=== PATIENT | female | born 1940 | race Caucasian/White ===

== ENCOUNTER 2018-03-28 11:05 | Emergency (ER) | payer MEDICARE ==
--- OUTSIDE RECORDS SUMMARY | 2018-03-28 11:14 | XMS REPORT ---
:1940 External Reference #:[id number] Author Organization [facility] Address [address], [address] [place] [address] Phone [phone] Care Team Providers Name Role Phone Arcadio King MD Care Team Information Charge Accounts Audit Clerk Unavailable Arcadio King MD Primary Care Physician Unavailable Payers Type Date Identification Numbers Payment Provider Subscriber Commercial Policy Number: [id number] [employer] Yaa Penn PayID: [id number] [address] [address] [place] [address] Problems Date Description Provider Status Onset: 01/28/2018 H/O: urinary stone Cj Nunes M.D. Active Onset: 11/06/2017 Peripheral vascular disease Kimberly Spangler, Active MSN, EXTENSION AGENT Onset: 11/06/2017 Mitral valve disorder Kimberly Spangler, Active MSN, EXTENSION AGENT Onset: 07/23/2017 Aortic valve disorder Jean Simon Active M.D., FACC Onset: 07/23/2017 Cardiomyopathy, unspecified Jean Simon Active M.D., FACC Onset: 07/23/2017 Electrocardiogram abnormal Jean Simon Active M.D., FACC Onset: 07/23/2017 Dyspnea Jean Simon Active M.D., FACC Onset: 12/29/2013 Full thickness rotator cuff tear Chencho Delgado MD, Active FACS Onset: 12/15/2013 Brachial neuritis Chencho Delgado MD, Active FACS Onset: 12/15/2013 Displacement of cervical Chencho Delgado MD, Active 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 Onset: 12/15/2013 Localized, primary osteoarthritis Chencho Delgado MD, Active of the shoulder region FACS Onset: 12/15/2013 Disorder of shoulder Chencho Delgado MD, Active FACS Family History Date Family Member(s) Problem(s) Comments General Cancer General Stroke General Diabetes Father due to Heart Disease () Mother Lung Cancer Social History Type Date Description Comments Marital Status Lives With Diet Patient follows no dietary restrictions Occupation Retired Cigarette Use Never Smoked Cigarettes ETOH Use Rarely consumes alcohol Smoking Patient denies history of smoking Recreational Drug Use Denies Drug Use Daily Caffeine Consumes on average 2 cups of regular coffee per day Allergies, Adverse Reactions, Alerts Date Description Reaction Status Severity Comments 12/15/2013 NKDA active Medications Medication Date Status Form Strength Qnty SIG Indications Ordering Provider Carvedilol 11/06 Active Tablets 3.125mg 180ta take one I42.9 Spangler, bs tablet Kimberly by mouth [place] once a , MSN, day in EXTENSION AGENT the evening to start with and then if tolerate d, twice a day Nexium Active Capsules DR 40mg 1 po Unknown /0000 daily Hydroxychloroquine Active Tablets 200mg bid Unknown Sulfate / Meclizine HCL Active Tablets 25mg 1 po Unknown / daily as needed Amitriptyline HCL Active Tablets 50mg 1 po Unknown /0000 daily Caltrate 600+D Active Tablets 600-400mg 1 po Unknown /0000 -Unit twice daily Centrum Silver Active Tablets 1 po Unknown /0000 daily Vitamin D-3 Active Tablets 400Unit 1 po Unknown /0000 twice daily Tylenol Active Misc Unknown / Levothyroxine Active Tablets 25mcg Once a Unknown Sodium day Clopidogrel 08/17 Hx Tablets 75mg 30tab 1 by R06.Jhonatan Spangler Bisulf s mouth Kimberly every day , MSN, EXTENSION AGENT Ranexa 08/17 Hx Tablets ER 500mg 60tab 1 by R06.Jhonatan Spangler, 12HR s mouth Kimberly twice a Paul toro MSN, EXTENSION AGENT Carvedilol 08/17 Hx Tablets 3.125mg 60tab by mouth I42.9 Spangler, s twice a Kimberly day EWA Miller, EXTENSION AGENT Sulindac 12/15 Hx Tablets 200mg 40tab 1 po bid [place], s Chencho Knight MD, FACS Multi-Day Hx Tablets Unknown / Folic Acid Hx Tablets 800mcg Unknown / Excedrin Extra Hx Tablets 250-250-6 prn Unknown Strength /0000 5mg Allergy Hx Tablets 25mg Unknown / Anti-Diarrheal Hx Capsules 2mg prn Unknown / Tums Hx Chewtabs 500mg prn Unknown /0000 - 01/28 Gaviscon Hx Suspension 95-358mg/ Unknown /0000 15ML Vital Signs Date Vital Result Comment 03/11/2018 BP Systolic 145 mmHg BP Diastolic 72 mmHg Body Temperature 97.5 F Heart Rate 63 /min Respiratory Rate 16 /min Height 64.5 inches 5'4.50" Weight 138.12 lb BMI (Body Mass Index) 23.3 kg/m2 BSA (Body Surface Area) 1.68 m2 Boaz body weight in kilograms 56 O2 % BldC Oximetry 93 % Pain Level 0 01/28/2018 BP Systolic 134 mmHg BP Diastolic 61 mmHg Body Temperature 98.1 F Heart Rate 76 /min Respiratory Rate 16 /min Height 64.5 inches 5'4.50" Weight 129.50 lb BMI (Body Mass Index) 21.9 kg/m2 BSA (Body Surface Area) 1.64 m2 Boaz body weight in kilograms 56 O2 % BldC Oximetry 97 % Pain Level 3 Left low back pain 11/06/2017 BP Systolic Sitting Left Arm 114 mmHg BP Diastolic Sitting Left Arm 60 mmHg Heart Rate 84 /min Respiratory Rate 18 /min Height 64.5 inches 5'4.50" Weight 134.00 lb BMI (Body Mass Index) 22.6 kg/m2 BSA (Body Surface Area) 1.66 m2 Boaz body weight in kilograms 56 08/17/2017 BP Systolic Sitting Left Arm 136 mmHg BP Diastolic Sitting Left Arm 64 mmHg Heart Rate 75 /min Respiratory Rate 16 /min Height 64.5 inches 5'4.50" Weight 133.00 lb BMI (Body Mass Index) 22.5 kg/m2 BSA (Body Surface Area) 1.65 m2 Boaz body weight in kilograms 56 07/23/2017 BP Systolic Sitting Left Arm 110 mmHg BP Diastolic Sitting Left Arm 60 mmHg Heart Rate 90 /min Respiratory Rate 16 /min Height 64.5 inches 5'4.50" Weight 133.00 lb BMI (Body Mass Index) 22.5 kg/m2 BSA (Body Surface Area) 1.65 m2 Boaz body weight in kilograms 56 12/15/2013 BP Systolic Sitting Left Arm 124 mmHg BP Diastolic Sitting Left Arm 60 mmHg Height 64.5 inches 5'4.50" Weight 138.00 lb BMI (Body Mass Index) 23.3 kg/m2 BSA (Body Surface Area) 1.68 m2 Results Test Date Test Result H/L Range Note Urine Dipstick 01/28/2018 Ua Color Yellow Yellow Ua Clarity CLear Clear Ua Leuko Negative Negative Ua Nitrite Negative Negative Ua Urobilinogen 1 mg/dL 0.2 - 1.0 E.U./dL Ua Protein 15 mg/dL High Negative Ua PH 5.0 Low 6.5-7.5 Ua Blood Negative Negative Ua Specific [place] 1.030 1.010-1.030 Ua Ketones Negative Negative Ua Bilirubin Negative Negative Ua Glucose Negative Negative Comprehensive Metabolic Panel 08/17/2017 Glucose 97 mg/dL 74-106 1 BUN 12 mg/dL 7-18 1 Creatinine 0.8 mg/dL 0.6-1.3 1 Glom Filtration Rate, Estimate >60 mL/min >60 1 If >60 mL/min >60 1, 2 BUN/Creat 15.0 ratio 1 Sodium 139 mmol/L 136-145 1 Potassium 4.1 mmol/L 3.5-5.1 1 Chloride 108 mmol/L High 98-107 1 Carbon Dioxide 26 mmol/L 21-32 1 Anion Gap 5 mEq/L Low 8-16 1 Calcium 9.3 mg/dL 8.5-10.1 1 Total Protein 7.0 g/dL 6.4-8.2 1 Albumin 3.7 g/dL 3.4-5.0 1 Globulin 3.3 g/dL 1.9-4.3 1 Alb/Glob 1.1 ratio 1 Bilirubin,Total 0.2 mg/dL 0.2-1.0 1 Sgot/Ast 19 U/L 15-37 1 SGPT/Alt 16 U/L 12-78 1 Alkaline Phosphatase 76 U/L 45-117 1 CBS W/Automated Diff 08/17/2017 White Blood Count 5.4 K/uL 3.1-10.7 1 Red Blood Count 4.06 M/uL 3.90-5.40 1 Hemoglobin 12.7 gm/dL 11.6-15.8 1 Hematocrit 38.0 % 36.0-46.1 1 Mean Cell Volume 93.6 fl 80.9-99.0 1 Mean Corpuscular HGB 31.3 pg 25.9-32.7 1 Mean Corpuscular HGB Conc 33.4 g/dL 30.8-34.3 1 Platelet Count 263 K/uL 155-360 1 Red Cell Distri Width SD 44.9 fl 3-47 1 Red Cell Distri Width %CV 13.5 % 11.7-14.4 1 Mean Platelet Volume 10.9 fL 8.9-12.4 1 Neut% 67.0 % 40.4-72.8 1 Lymph % 19.4 % Low 20.0-42.0 1 [place] % 9.0 % 4.3-13.2 1 Eo% 3.9 % 0.0-6.6 1 Bas% 0.7 % 0.0-1.1 1 Neut# 3.58 K/uL 1.8-7.0 1 Lymph # 1.04 K/uL 1.0-4.0 1 [place] # 0.48 K/uL 0.3-0.9 1 Eos # 0.21 K/uL 0.0-0.5 1 Baso # 0.04 K/uL 0.0-0.1 1 Laboratory test finding 06/03/2017 Alt 13 U/L 3-42 3 Ast 24 U/L 8-42 3, 4 Chol/ HDL Ratio 3.5 ratio Low 3.7-5.6 3, 5 Cholesterol 177 mg/dL 50-199 3 HDL 51 mg/dL 35-85 3 LDL (Calc) 108 mg/dL High 20-99 3 Magnesium 1.9 mg/dL 1.5-2.7 3 TSH 3.49 uIU/mL 0.35-4.94 3 Triglycerides 91 mg/dL 30-200 3 VLDL 18 mg/dL 2-29 3 Vit D25oh 54 ng/mL 31-100 3 Laboratory test finding 11/24/2016 Urine Culture Microbiology res <See Note > 6 1 R06.02 2 Note: Persistent reduction for 3 months or more in an eGFR <60 mL/min/1.73 m2 defines CKD. Patients with eGFR values >/=60 mL/min/1.73 m2 may also have CKD if evidence of persistent proteinuria is present. The original MDRD equation for estimated GFR is not valid for patients less than 18 years of age. Additional information may be found at [email or web address].org. 3 05/31 preOV 4 Per NCEP ATP III Guidelines: Normal Population <130 Patients with medical conditions: CHD/DM Optimal: <100 Borderline high: 130-159 High: 160-189 Very high: >189 5 Per NCEP ATP III Guidelines: Results lower than 40 mg/dL are suggestive of increased risk for coronary artery disease. Results > or=to 60 mg/dL are considered a negative risk factor. 6 Microbiology results SOURCE Clean Catch Midstream COLONY COUNT >100,000 CFU/ML PRELIMINARY RESULT Gram Negative Romain. ID & Sensitivity to Follow. FINAL RESULT Escherichia coli (Isolate 1) Sensitivity Analysis Isolate 1 --------- AMIKACIN <=16 S AMPICILLIN <=8 S AMPICILLIN/SULBACTAM <=8/4 S AZTREONAM <=4 S CEFAZOLIN <=2 S CEFEPIME <=8 S CEFTAZIDIME <=1 S CEFTRIAXONE <=1 S CIPROFLOXACIN <=1 S ERTAPENEM <=0.5 S GENTAMYCIN <=2 S IMIPENEM <=1 S LEVOFLOXACIN <=2 S NITROFURANTOIN <=32 S PIPERACILLIN/TAZOBACTAM <=16 S TETRACYCLINE <=4 S TOBRAMYCIN <=4 S TRIMETHOPRIM/SULFAMETHOXAZ <=2/38 S S=Sensitive;I=Indeterminate;R=Resistant Procedures Date CPT Code Description Status 08/20/2017 97417 Event Monitor Inter/Review Only Completed 07/31/2017 17963 Stress Test Interpre And Report Only Completed 07/31/2017 90700 Stress Test Physician Super Only Completed 07/31/2017 74859 Myocardial Imaging Tomographic Multiple Study AT Rest Completed Or Stress 07/23/2017 42252 EKG-Tracing And Report Completed 06/02/2014 33037 Stress Test Interpre And Report Only Completed 06/02/2014 83357 Stress Test Physician Super Only Completed 06/02/2014 96295 Stress Test Physician Super Only Completed 06/02/2014 83149 Myocardial Imaging Tomographic Multiple Study AT Rest Completed Or Stress 12/15/2013 30307 Radiology, Shoulder: Two Views (Sso) Completed 12/15/2013 27069 xray spine cervical min 4 views Completed 04/29/2010 32941 Stress Test Interpre And Report Only Completed 04/29/2010 41427 Stress Test Physician Super Only Completed Encounters Type Date Location Provider CPT E/M Dx Office Visit 03/11/2018 2:45p Urology Cj Nunes M.D. 81840 Z87.442 Office Visit 01/28/2018 1:30p Urology Cj Nunes M.D. 21759 Z87.442 Office Visit 11/06/2017 11:20a Cardiology Office Kimberly Spangler 15254 I42.9 Paul, MSN, EXTENSION AGENT I34.0 I35.1 I87.2 Office Visit 08/17/2017 3:00p Cardiology Office Spangler Kimberlycaleb Miller, 28571 R06.02 MSN, EXTENSION AGENT I42.9 R55 I34.0 I35.1 Office Visit 07/23/2017 11:40a Cardiology Office Jean Simon, 86818 R06.02 Annamaria, [facility] R94.31 I42.9 I35.1 Office Visit 12/29/2013 3:00p [place], [address] 726.2 FACS 715.11 722.0 723.4 727.61 Office Visit 12/15/2013 1:30p [place], [address] 726.2 FACS 715.11 722.0 723.4 719.41 Plan of Care 03/11/2018 - Cj Nunes M.D.Z87.442 Personal history of urinary calculiComments:No evidence of recurrent stones on her CT scan. Patient to follow-up with me as needed.
--- OUTSIDE RECORDS SUMMARY | 2018-03-28 11:14 | XMS REPORT ---
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 Payers Type Date Identification Numbers Payment Provider Subscriber Commercial Effective: Policy Number: [employer] Yaa Penn 2017 [id number] Solutions Expires: 2018 Group Number: [id number] [address] [address] Group Name: [facility] [address] PayID: [id number] Workers Compensation Onset: 2014 Policy Number: [employer] [id number] Chelsi Penn Group Number: [id number] Group Name: fax [phone] [place] [address] PayID: [facility] Workers Compensation Onset: 2012 Policy Number: [place] Yaa Penn [id number] [address] [place] [address] Problems Date Description Provider Status Onset: 11/30/2013 Peptic reflux disease Arcadio King MD Active Onset: 06/01/2013 Disorder of magnesium metabolism Arcadio King MD Active Onset: 11/12/2011 Kidney stone Arcadio King MD Active Onset: 10/21/2006 Pure hypercholesterolemia Arcadio King MD Active Onset: 04/22/2006 Raynaud's disease Arcadio King MD Active Onset: 10/22/2005 Gastroesophageal reflux disease Arcadio King MD Active Onset: 10/22/2005 Varicose veins of lower extremity Arcadio King MD Active with inflammation Onset: 04/22/2005 Menopausal and postmenopausal Arcadio King MD Active disorders Onset: 04/22/2005 Systemic lupus erythematosus Arcadio King MD Active Onset: 11/23/2015 Hypothyroidism Arcadio King MD Active Onset: 12/02/2016 Fibromyalgia Arcadio King MD Active Onset: 05/07/2017 Osteopenia Arcadio King MD Active Onset: 05/07/2017 Lipodermatosclerosis Arcadio King MD Active Onset: 06/10/2017 Chronic obstructive lung disease Arcadio King MD Active Onset: 11/03/2017 Cardiomyopathy Arcadio King MD Active Onset: 12/09/2017 Vertebrobasilar artery syndrome Arcadio King MD Active Onset: 05/06/2011 Eruption Arcadio King MD Inactive Inactive: 05/07/2017 Onset: 12/22/2006 Osteochondropathy Arcadio King MD Inactive Inactive: 05/07/2017 Onset: 04/22/2005 Malaise and fatigue Arcadio King MD Inactive Inactive: 05/07/2017 Family History Date Family Member(s) Problem(s) Comments Father due to OK () - 70's Father CVA Mother due to Cancer, Breast () - 77 Mother CVA Mother due to DM2 () First Sister Multiple Sclerosis Social History Type Date Description Comments Marital Status Lives With Spouse 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 active 10/02/2014 Sulfa Drugs active 10/02/2014 Darvon active 10/02/2014 Celexa active 10/02/2014 Ultram active 10/02/2014 NKDA inactive Medications Medication Date Status Form Strength Qnty SIG Indications Ordering Provider Nexium 24HR 06/27/[address] 20mg OTC 1 pill by K21.0 Digiovanwilliam, 18 mouth MD Arcadio twice a day K21.9 Hydrocortisone 11/03/2017 Active Ointment 2.5% 60gm apply I83.10 Christine, sparingly MD Arcadio three times a day to rash on legs as needed Aspirin Ec Low 07/09/[address] 81mg 90tabs 1 by mouth I42.9 Digiovanna, Dose every day MD Arcadio Meclizine HCL 06/07/2016 Active Tablets 12.5mg 100tab Take 1 Or H81.399 Digiovanna, s 2 Tablets MD Arcadio By Mouth 3 Times Daily as Needed For Vertigo, Max Daily Dose Of 6 Tablets Levothyroxine 11/23/2015 Active Tablets 25mcg 135tab Take 1 And E03.9 Digiovanna, Sodium s /2 MD Arcadio Tablets By Mouth Daily Amitriptyline 09/21/2015 Active Tablets 50mg 90tabs 1/2 or 1 M79.7 Digiovanna, HCL by mouth MD Arcadio every night at bedtime Biotin 11/02/2014 Active Capsules 5000mc 2 by mouth Giron, g every day DO Yoav Magnesium Oxide 06/01/2013 Active Tablets 400(24 1 po qd E83.42 Digiovanna, 1.3Mg) Arcadio Zamora MD mg E83.40 [facility] Vitamin D3 04/25/2009 Active Capsules 1000Unit 2 po qd M85.89 Arcadio King MD M93.90 Calcium Active Tablets 1500mg 1 po bid M85.89 Christine, Carbonate Arcadio Zamora MD M93.90 Carvedilol Active Tablets 3.125mg 1 pill by I42.9 Unknown mouth twice a day Hydroxychloroquine Active Tablets 200mg 180 Take 1 M32.10 Digiovanna Sulfate tab Tablet By , batsheva Ervin MD Twice A Day M32.9 Mometasone 07/30/2017 - 07/30/2017 Hx Ointment 0.1% R21 Arcadio King MD I83.10 Mometasone 07/30/2017 - Hx Ointment 0.1% 30gm apply R21 Digiovanna, Furoate 11/03/2017 sparingly MD Arcadio twice a day to rash on legs I83.10 Amoxicillin 06/22/2017 - Hx Tablets 875mg 20tabs 1 by J01.00 Digadriana , 07/02/2017 mouth MD Arcadio twice a day for 10 days Esomeprazole 12/04/2016 - Hx Capsules DR 40mg 180caps take one K21.0 Digiovanna, Magnesium 12/09/2017 capsule MD Arcadio by mouth twice a day K21.9 Nitrofurantoin 11/24/2016 - Hx Capsules 100mg 14caps 1 by mouth R30.0 Digiovanna, Macrocrystal 12/01/2016 twice a day PILI Mendiola for 7 days Hydrocortisone 06/02/2016 - Hx Cream 2.5% 15gm apply R21 Digiovanna, 11/12/2016 sparingly MD Arcadio 2- 3 times a day to rash on legs Reclast 06/02/2016 - Hx Solution 5mg/100 100ml infuse iv M85.89 Digiovanna, 07/02/2016 ML over 15 MD Arcadio minutes Ciprofloxacin 02/23/2016 - Hx Tablets 250mg 6tabs 1 by mouth N30.00 Cha, HCL 02/23/2016 twice a day MD Abena Cephalexin 02/23/2016 - Hx Tablets 250mg 14tabs 1 by mouth N30.00 Cha, 06/02/2016 twice a MD Abena day, cancel the cipro, pt has long QT Nifedical XL 08/06/2015 - Hx Tablets ER 30mg 90tabs Take 1 I73.00 Christine, 06/10/2017 24HR tablet by MD Arcadio mouth every morning (during colder weather) M32.9 Azithromycin 06/06/2015 - Hx Tablets 250mg 6tabs 2 pills by J04.10 Digiovanna, 06/16/2015 mouth day 1, MD Arcadio then 1 pill once daily for 4 more days (take w/ food) Zostavax 05/23/2015 - Hx Solution [id number] 1units 1 dose Digiovanna, 06/02/2016 Rec nt/0.6 intramuscular MD Arcadio 5ML x 1 Amitriptyline 05/23/2015 - Hx Tablets 50mg 90tabs 1 by mouth 729.1 Halleran, HCL 05/23/2015 every night at MD John bedtime Amitriptyline 05/23/2015 - Hx Tablets 50mg 90tabs 1 by mouth 729.1 Halleran, HCL 05/23/2015 every night at MD John bedtime Amitriptyline 05/23/2015 - Hx Tablets 25mg 90tabs Take 1 tablet M79.7 Digiovanna, HCL 09/21/2015 by mouth at MD Arcadio bedtime Lorazepam 12/08/2014 - Hx Tablets 0.5mg 20tabs 1 or 2 tabs by 386.10 Digiovanna, 06/07/2016 mouth every 4 MD Arcadio hours as needed for severe vertigo Reclast 11/22/2014 - Hx Solution 5mg/10 infusse 100 733.01 Digiovanna, 12/12/2014 0ML milliliters (5 MD Arcadio mg) iv over 15 minute; dx oteoporosis(73 3.01) Ciprofloxacin 11/21/2014 - Hx Tablets 250mg 10tabs 1 po bid x 5 595.0 Digiovanna, HCL 11/26/2014 days MD Arcadio Esomeprazole 11/21/2014 - Hx Capsules 20mg 180cap 2 by mouth K21.0 Digiovanna, Magnesium 12/04/2016 DR herman twice a day MD Arcadio OTC K21.9 Doxycycline 11/02/2014 - Hx Capsules 100mg 2caps 2 po x 1 911.4 Boo Gironclate 11/03/2014 DO Yoav Esomeprazole 06/13/2014 - Hx Capsules 40mg 180caps take 1 Digiovanna Magnesium 10/09/2014 Arcadio george twice a day Noah RAO before meals Naproxen Sodium 04/23/2014 - Hx Capsules 220mg 2 by mouth Digiovanna 10/02/2014 twice a day Arcadio as needed Noah RAO Nifedipine ER 05/27/2012 - Hx Tablets ER 30mg 90tabs 1 by mouth I73.00 Digiovanna 08/06/2015 24HR every , patric Ervin MD (during colder weather) Amitriptyline 06/05/2010 - Hx Tablets 50mg 90tabs 1 by mouth 729.1 Digiovanna HCL 05/23/2015 every night , Arcadio at bedtime Noah RAO Folic Acid - Hx Tablets 1mg 1 po qd Digiovanna 11/21/2014 , Arcadio Zamora MD Triamcinolone - Hx Ointment 0.1% apply R21 Foresman, Acetonide 07/30/2017 sparingly Paulina CANALES twice a day to rash on legs as needed I83.10 Carvedilol - Hx Tablets 3.125mg 1 by I42.9 Johnenko, 11/03/2017 mouth MD Jean twice a day Clopidogrel - Hx Tablets 75mg 1 by I42.9 Aurora, Bisulfate 11/03/2017 mouth MD Jean every day Ranexa - Hx Tablets ER 500mg 1 by I42.9 Aurora, 11/03/2017 12HR mouth MD Jean twice a day Immunizations CPT Code Status Date Vaccine Reaction Lot # [id number] Given 03/23/2018 Fluzone Highdose Age 65 And Over Preservative & Antibiotic Free 68192 Given 03/28/2017 Fluzone Highdose Age 65 And Over Preservative & Antibiotic Free 85777 Given 04/30/2016 Fluzone Highdose Age 65 And Over [facility] Preservative & Antibiotic Free 05000 Given 05/23/2015 Fluzone Highdose Age [address] [facility] Preservative & Antibiotic Free 76742 Given 11/21/2014 Prevnar 13 Pneumococal Conjugate [id number] Vaccine 43435 Given 03/31/2014 Fluzone Highdose Age 65 And Over [facility] Preservative & Antibiotic Free 91624 Given 03/31/2013 Afluria Or Fluvirin Flu Vac Intramuscular 68593 Given 04/01/2012 Afluria Or Fluvirin Flu Vac Intramuscular 61838 Given 07/16/2011 Tdap (Adacel) Ages 7 And Above Only 30609 Given 02/21/2011 Afluria Or Fluvirin Flu Vac Intramuscular 18027 Given 02/27/2010 Afluria Or Fluvirin Flu Vac DONE AT [facility] Intramuscular 72966 Given 04/10/2008 Afluria Or Fluvirin Flu Vac Intramuscular 35020 Given 04/23/2007 Afluria Or Fluvirin Flu Vac Intramuscular 09665 Given 04/22/2006 Afluria Or Fluvirin Flu Vac Intramuscular 06942 Given 04/22/2005 Afluria Or Fluvirin Flu Vac Intramuscular 44095 Given 10/16/2003 Immunization Td 7 Yrs Or Older 71355 Given 04/18/2003 Pneumococcal 23 Immunization Adult Or Immunosuppressed Patient 71436 Given 04/18/2003 Afluria Or Fluvirin Flu Vac Intramuscular Vital Signs Date Vital Result Comment 03/27/2018 Weight 129.12 lb Heart Rate 80 /min BP Systolic 134 mmHg BP Diastolic 64 mmHg Respiratory Rate 18 /min Height 65 inches 5'5" O2 % BldC Oximetry 97 % ra BMI (Body Mass Index) 21.5 kg/m2 12/09/2017 Weight 132.00 lb Heart Rate 78 /min BP Systolic 120 mmHg BP Diastolic 70 mmHg Respiratory Rate 18 /min Height 65 inches 5'5" BMI (Body Mass Index) 22.0 kg/m2 11/03/2017 Weight 132.00 lb Heart Rate 72 /min BP Systolic 120 mmHg BP Diastolic 62 mmHg Respiratory Rate 18 /min Height 65 inches 5'5" BMI (Body Mass Index) 22.0 kg/m2 07/09/2017 Weight 133.00 lb Heart Rate 82 /min BP Systolic 116 mmHg BP Diastolic 82 mmHg Respiratory Rate 18 /min Height 65 inches 5'5" BMI (Body Mass Index) 22.1 kg/m2 06/22/2017 Body Temperature 100.7 F Weight 133.00 lb Heart Rate 100 /min BP Systolic 120 mmHg BP Diastolic 66 mmHg Respiratory Rate 18 /min Height 65 inches 5'5" O2 % BldC Oximetry 93 % Ra BMI (Body Mass Index) 22.1 kg/m2 06/10/2017 Weight 135.00 lb Heart Rate 72 /min BP Systolic 120 mmHg BP Diastolic 78 mmHg Height 65 inches 5'5" BMI (Body Mass Index) 22.5 kg/m2 12/02/2016 Weight 141.00 lb Heart Rate 84 /min BP Systolic 102 mmHg BP Diastolic 60 mmHg BP Systolic Standing 120 mmHg 86 HR BP Diastolic Standing 68 mmHg 86 HR Respiratory Rate 18 /min Height 64.75 inches 5'4.75" O2 % BldC Oximetry 99 % Ra at rest BMI (Body Mass Index) 23.6 kg/m2 11/24/2016 Body Temperature 96.9 F Weight 140.00 lb Heart Rate 84 /min BP Systolic 118 mmHg BP Diastolic 58 mmHg Respiratory Rate 17 /min Height 65 inches 5'5" BMI (Body Mass Index) 23.3 kg/m2 06/02/2016 Weight 129.00 lb Heart Rate 74 /min BP Systolic 120 mmHg BP Diastolic 78 mmHg Respiratory Rate 18 /min Height 65 inches 5'5" BMI (Body Mass Index) 21.5 kg/m2 02/23/2016 Body Temperature 98.5 F Weight 137.00 lb Heart Rate 70 /min BP Systolic 132 mmHg BP Diastolic 70 mmHg Respiratory Rate 17 /min Height 65 inches 5'5" BMI (Body Mass Index) 22.8 kg/m2 11/23/2015 Weight 144.00 lb Heart Rate 74 /min BP Systolic 120 mmHg BP Diastolic 70 mmHg Respiratory Rate 18 /min Height 65 inches 5'5" BMI (Body Mass Index) 24.0 kg/m2 06/06/2015 Body Temperature 97.7 F Weight 140.00 lb Heart Rate 74 /min BP Systolic 134 mmHg L/Reg BP Diastolic 72 mmHg L/Reg Respiratory Rate 19 /min Height 65 inches 5'5" BMI (Body Mass Index) 23.3 kg/m2 05/23/2015 Weight 141.00 lb Heart Rate 76 /min BP Systolic 122 mmHg BP Diastolic 58 mmHg Respiratory Rate 18 /min Height 65 inches 5'5" BMI (Body Mass Index) 23.5 kg/m2 02/21/2015 Weight 136.00 lb Heart Rate 76 /min BP Systolic 112 mmHg BP Diastolic 70 mmHg Respiratory Rate 18 /min Height 65 inches 5'5" BMI (Body Mass Index) 22.6 kg/m2 11/21/2014 Weight 140.00 lb Heart Rate 92 /min BP Systolic 148 mmHg BP Diastolic 62 mmHg Respiratory Rate 18 /min Height 65 inches 5'5" BMI (Body Mass Index) 23.3 kg/m2 11/02/2014 Body Temperature 98.4 F Weight 146.00 lb Heart Rate 68 /min BP Systolic 134 mmHg BP Diastolic 68 mmHg Respiratory Rate 18 /min Height 65 inches 5'5" BMI (Body Mass Index) 24.3 kg/m2 10/09/2014 Weight 151.00 lb BP Systolic 130 mmHg BP Diastolic 72 mmHg Respiratory Rate 18 /min Height 65 inches 5'5" O2 % BldC Oximetry 97 % BMI (Body Mass Index) 25.1 kg/m2 10/02/2014 Body Temperature 99.1 F Weight 148.00 lb Heart Rate 72 /min BP Systolic 134 mmHg BP Diastolic 76 mmHg Respiratory Rate 18 /min Height 65 inches 5'5" BMI (Body Mass Index) 24.6 kg/m2 05/23/2014 Weight 141.00 lb Up 3# Heart Rate 78 /min BP Systolic 138 mmHg L/Reg BP Diastolic 78 mmHg L/Reg Respiratory Rate 22 /min Height 65 inches 5'5" O2 % BldC Oximetry 94 % Ra At Rest 11/30/2013 Weight 138.44 lb Heart Rate 72 /min BP Systolic 128 mmHg BP Diastolic 72 mmHg Respiratory Rate 18 /min Height 65 inches 5'5" 06/01/2013 BP Systolic 120 mmHg L standing BP Diastolic 60 mmHg L standing 06/01/2013 Weight 135.44 lb Heart Rate 84 /min BP Systolic 122 mmHg BP Diastolic 64 mmHg Respiratory Rate 18 /min Height 65 inches 5'5" 11/29/2012 Weight 139.00 lb Down 4# Heart Rate 84 /min BP Systolic 124 mmHg R/Reg BP Diastolic 82 mmHg R/Reg Respiratory Rate 18 /min Height 65.1 inches 5'5.10" Results Test Date Test Result H/L Range Note Laboratory test finding 12/03/2017 Magnesium 2.1 mg/dL 1.5-2.7 1 Comprehensive Met Panel-FCM 12/03/2017 Sodium 142 mmol/L 135-146 1, 2 Potassium 4.7 mmol/L 3.5-5.2 1 Chloride# 108 mmol/L 97-110 1, 3 Carbon Dioxide 26 mmol/L 24-34 1 Glucose 97 mg/dL 70-105 1 BUN 13 mg/dL 6-26 1 Creatinine 0.8 mg/dL 0.5-1.4 1 Calcium 9.1 mg/dL 8.5-10.2 1 Total Protein 5.9 g/dL Low 6.0-8.0 1 Albumin 3.8 g/dL 3.6-4.9 1 Globulin 2.1 g/dL 2.0-3.5 1 A/G Ratio 1.8 Ratio 1.0-2.2 1 Total Bilirubin 0.3 mg/dL 0.1-1.3 1 Alkaline Phosphatase 55 U/L 24-140 1 Alt 11 U/L 3-42 1 Ast 22 U/L 8-42 1 Juanis Egfr >60 >60 1, 4 Non Juanis Egfr >60 >60 1, 5 Anion Gap 8 mmol/L 5-15 1, 6 Laboratory test finding 12/03/2017 TSH 2.35 uIU/mL 0.35-4.94 1 CBC With Auto Diff 12/03/2017 WBC 5.4 K/uL 4.1-11.0 1 RBC 3.96 M/uL Low 4.00-5.40 1 Hemoglobin 12.1 gm/dL 12.0-16.0 1 Hematocrit 36.7 % 36.0-47.0 1 MCV 92.7 fL 80.0-97.0 1 MCH 30.5 pg 27.0-32.0 1 MCHC 32.9 g/dL 32.0-36.0 1 RDW 13.4 % 11.5-14.5 1 PLT Count 230 K/ul 140-400 1 MPV 10.1 FL 7.1-10.7 1 Neutrophil 68.5 % 35.0-75.0 1 Lymphocyte 16.6 % 16.0-52.0 1 Monocyte 9.1 % 2.0-10.0 1 Eosinophil 4.6 % 0.0-5.0 1 Basophil 1.2 % 0.0-4.0 1 Abs Neutrophils 3.7 K/uL 2.1-8.0 1 Abs Lymphocytes 0.9 K/uL 0.8-5.5 1 Abs Monocytes 0.5 K/uL 0.1-1.0 1 Abs Eosinophils 0.3 K/uL 0.0-0.5 1 Abs Basophils 0.1 K/uL 0.0-0.3 1 Laboratory test finding 12/03/2017 Vitamin B12 782 pg/mL 180-914 1 Lipid 12/03/2017 Cholesterol 183 mg/dL 50-199 1 Triglycerides 152 mg/dL 30-200 1 HDL 47 mg/dL 35-85 1, 7 Chol/ HDL Ratio 3.9 ratio 3.7-5.6 1 VLDL 30 mg/dL High 2-29 1 LDL (Calc) 106 mg/dL High 20-99 1, 8 CBC with Auto Diff-fcmg 11/03/2017 WBC 5.5 K/uL 4.1-11.0 9 RBC 3.86 M/uL Low 4.00-5.40 9 Hemoglobin 12.0 gm/dL 12.0-16.0 9 Hematocrit 35.8 % Low 36.0-47.0 9 MCV 92.8 fL 80.0-97.0 9 MCH 31.0 pg 27.0-32.0 9 MCHC 33.5 g/dL 32.0-36.0 9 RDW 13.3 % 11.5-14.5 9 PLT Count 254 K/ul 140-400 9 MPV 9.8 FL 7.1-10.7 9 Neutrophil 67.1 % 35.0-75.0 9 Lymphocyte 19.2 % 16.0-52.0 9 Monocyte 9.3 % 2.0-10.0 9 Eosinophil 4.1 % 0.0-5.0 9 Basophil 0.3 % 0.0-4.0 9 Abs Neutrophils 3.7 K/uL 2.1-8.0 9 Abs Lymphocytes 1.1 K/uL 0.8-5.5 9 Abs Monocytes 0.5 K/uL 0.1-1.0 9 Abs Eosinophils 0.2 K/uL 0.0-0.5 9 Abs Basophils 0.0 K/uL 0.0-0.3 9 Basic (BMP) 11/03/2017 Sodium 142 mmol/L 135-146 9, 10 Potassium 4.5 mmol/L 3.5-5.2 9 Chloride# 107 mmol/L 97-110 9, 11 Carbon Dioxide 28 mmol/L 24-34 9 Glucose 89 mg/dL 70-105 9 BUN 17 mg/dL 6-26 9 Creatinine 0.9 mg/dL 0.5-1.4 9 Calcium 9.6 mg/dL 8.5-10.2 9 Non Juanis Egfr 60 Low >60 9, 12 Juanis Egfr >60 >60 9, 13 Anion Gap 7 mmol/L 5-15 9, 14 Laboratory test finding 06/03/2017 TSH 3.49 uIU/mL 0.35-4.94 15 Lipid Treatment 06/03/2017 Cholesterol 177 mg/dL 50-199 15 Triglycerides 91 mg/dL 30-200 15 HDL 51 mg/dL 35-85 15, 16 Chol/ HDL Ratio 3.5 ratio Low 3.7-5.6 15 VLDL 18 mg/dL 2-29 15 LDL (Calc) 108 mg/dL High 20-99 15, 17 Alt 13 U/L 3-42 15 Ast 24 U/L 8-42 15 Laboratory test finding 06/03/2017 Vit D25oh 54 ng/mL 31-100 15 Magnesium 1.9 mg/dL 1.5-2.7 15 Laboratory test 11/24/2016 Urine Culture Microbiology res <SEE 18 finding NOTE> Laboratory test 11/24/2016 TSH 3.99 uIU/mL 0.35-4.94 19 finding Lipid Treatment 11/24/2016 Cholesterol 192 mg/dL 50-199 19 Triglycerides 97 mg/dL 30-200 19 HDL 53 mg/dL 35-85 19, 20 Chol/ HDL Ratio 3.6 ratio Low 3.7-5.6 19 VLDL 19 mg/dL 2-29 19 LDL (Calc) 119 mg/dL High 20-99 19, 21 Alt 13 U/L 3-42 19 Ast 19 U/L 8-42 19 CBC With Auto Diff 11/24/2016 WBC 8.7 K/uL 4.1-11.0 19 RBC 4.04 M/uL 4.00-5.40 19 Hemoglobin 12.5 gm/dL 12.0-16.0 19 Hematocrit 38.0 % 36.0-47.0 19 MCV 94.0 fL 80.0-97.0 19 MCH 30.8 pg 27.0-32.0 19 MCHC 32.8 g/dL 32.0-36.0 19 RDW 13.8 % 11.5-14.5 19 PLT Count 248 K/ul 140-400 19 Neutrophil 77.0 % High 35.0-75.0 19 Lymphocyte 13.2 % Low 16.0-52.0 19 Monocyte 6.1 % 2.0-10.0 19 Eosinophil 3.2 % 0.0-5.0 19 Basophil 0.5 % 0.0-4.0 19 Abs Neutrophils 6.7 K/uL 2.1-8.0 19 Abs Lymphocytes 1.1 K/uL 0.8-5.5 19 Abs Monocytes 0.5 K/uL 0.1-1.0 19 Abs Eosinophils 0.3 K/uL 0.0-0.5 19 Abs Basophils 0.0 K/uL 0.0-0.3 19 Laboratory test finding 11/24/2016 Magnesium 2.2 mg/dL 1.5-2.7 19 Basic (BMP) 11/24/2016 Sodium 144 mmol/L 135-146 19, 22 Potassium 4.6 mmol/L 3.5-5.2 19 Chloride# 110 mmol/L 97-110 19, 23 Carbon Dioxide 26 mmol/L 24-34 19 Glucose 104 mg/dL 70-105 19 BUN 13 mg/dL 6-26 19 Creatinine 1.0 mg/dL 0.5-1.4 19 Calcium 9.3 mg/dL 8.5-10.2 19 Non Juanis Egfr 57 Low >60 19, 24 Juanis Egfr >60 >60 19, 25 Anion Gap 13 mmol/L 7-16 19, 26 Laboratory test finding 11/24/2016 Vit D,25 Hydroxy 54 ng/mL 31-100 19 Laboratory test finding 05/26/2016 TSH 3.57 uIU/mL 0.35-4.94 27 Lipid Treatment 05/26/2016 Cholesterol 180 mg/dL 50-199 27 Triglycerides 86 mg/dL 30-200 27 HDL 53 mg/dL 35-85 27, 28 Chol/ HDL Ratio 3.4 ratio Low 3.7-5.6 27 VLDL 17 mg/dL 2-29 27 LDL (Calc) 110 mg/dL High 20-99 27, 29 Alt 12 U/L 3-42 27 Ast 23 U/L 8-42 27 Laboratory test finding 05/26/2016 Magnesium 2.1 mg/dL 1.5-2.7 27 CBC With Auto Diff 05/26/2016 WBC 3.5 K/uL Low 4.1-11.0 27 RBC 3.85 M/uL Low 4.00-5.40 27 Hemoglobin 12.3 gm/dL 12.0-16.0 27 Hematocrit 36.1 % 36.0-47.0 27 MCV 93.8 fL 80.0-97.0 27 MCH 31.9 pg 27.0-32.0 27 MCHC 34.0 g/dL 32.0-36.0 27 RDW 13.0 % 11.5-14.5 27 PLT Count 212 K/ul 140-400 27 Neutrophil 58.3 % 35.0-75.0 27 Lymphocyte 25.2 % 16.0-52.0 27 Monocyte 8.9 % 2.0-10.0 27 Eosinophil 6.4 % High 0.0-5.0 27 Basophil 1.2 % 0.0-4.0 27 Abs Neutrophils 2.1 K/uL 2.1-8.0 27 Abs Lymphocytes 0.9 K/uL 0.8-5.5 27 Abs Monocytes 0.3 K/uL 0.1-1.0 27 Abs Eosinophils 0.2 K/uL 0.0-0.5 27 Abs Basophils 0.0 K/uL 0.0-0.3 27 Laboratory test finding 05/26/2016 Vitamin B12 707 pg/mL 180-914 27 Basic (BMP) 05/26/2016 Sodium 138 mmol/L 134-142 27 Potassium 4.2 mmol/L 3.5-5.2 27 Chloride 106 mmol/L 97-109 27 Carbon Dioxide 25 mmol/L 24-34 27 Glucose 94 mg/dL 70-105 27 BUN 19 mg/dL 6-26 27 Creatinine 0.8 mg/dL 0.5-1.4 27 Calcium 8.7 mg/dL 8.5-10.2 27 Anion Gap 11 mmol/L 6-14 27 Non Juanis Egfr >60 >60 27, 30 Juanis Egfr >60 >60 27, 31 Urinalysis W/Micro 02/23/2016 Color YELLOW Appearance CLEAR Spec Grav Urine 1.021 (1.003-1.030) PH Urine 6.0 (5.0-7.5) Leuk Esterase 1+ (Neg) Nitrite Urine NEGATIVE (Neg) Protein Urine TRACE (Neg) Glucose Urine NEGATIVE (Neg) Ketone Urine NEGATIVE (Neg) Urobilinogen 0.2 mg/dL (0-1.0) Bilirubin Urine NEGATIVE (Neg) Blood/HGB Urine NEGATIVE (Neg) Urine WBC 3-5 [HPF] (0-5) Urine RBC NONE SEEN [HPF] (0-2) Epithelial Cells 1+ [HPF] Mucus 1+ [HPF] Caox Crystals 1+ [HPF] Yeast 1+ [HPF] Laboratory test finding 02/23/2016 Urine Culture SPECIMEN DESCRI> 32 Laboratory test finding 2016 TSH 1.65 uIU/mL 0.35-4.94 33 Lipid Treatment 11/16/2015 Cholesterol 183 mg/dL 50-199 34 Triglycerides 119 mg/dL 30-200 34 HDL 52 mg/dL 35-85 34, 35 Chol/ HDL Ratio 3.5 ratio Low 3.7-5.6 34 VLDL 24 mg/dL 2-29 34 LDL (Calc) 107 mg/dL High 20-99 34, 36 Alt 13 U/L 3-42 34 Ast 21 U/L 8-42 34 Laboratory test finding 11/16/2015 Magnesium 1.9 mg/dL 1.5-2.7 34 CBC With Auto Diff 11/16/2015 WBC 3.6 K/uL Low 4.1-11.0 34 RBC 3.95 M/uL Low 4.00-5.40 34 Hemoglobin 12.2 gm/dL 12.0-16.0 34 Hematocrit 36.7 % 36.0-47.0 34 MCV 92.8 fL 80.0-97.0 34 MCH 30.9 pg 27.0-32.0 34 MCHC 33.3 g/dL 32.0-36.0 34 RDW 13.8 % 11.5-14.5 34 PLT Count 240 K/ul 140-400 34 Neutrophil 51.6 % 35.0-75.0 34 Lymphocyte 28.8 % 16.0-52.0 34 Monocyte 11.8 % High 2.0-10.0 34 Eosinophil 6.8 % High 0.0-5.0 34 Basophil 1.0 % 0.0-4.0 34 Abs Neutrophils 1.9 K/uL Low 2.1-8.0 34 Abs Lymphocytes 1.0 K/uL 0.8-5.5 34 Abs Monocytes 0.4 K/uL 0.1-1.0 34 Abs Eosinophils 0.2 K/uL 0.0-0.5 34 Abs Basophils 0.0 K/uL 0.0-0.3 34 Basic (BMP) 11/16/2015 Sodium 140 mmol/L 134-142 34 Potassium 4.3 mmol/L 3.5-5.2 34 Chloride 108 mmol/L 97-109 34 Carbon Dioxide 26 mmol/L 24-34 34 Glucose 95 mg/dL 70-105 34 BUN 12 mg/dL 6-26 34 Creatinine 0.8 mg/dL 0.5-1.4 34 Calcium 8.8 mg/dL 8.5-10.2 34 Anion Gap 10 mmol/L 6-14 34 Non Juanis Egfr >60 >60 34, 37 Juanis Egfr >60 >60 34, 38 Laboratory test finding 11/16/2015 TSH 6.09 uIU/mL High 0.35-4.94 34 Lipid Treatment 05/16/2015 Cholesterol 191 mg/dL 50-199 39 Triglycerides 99 mg/dL 30-200 39 HDL 56 mg/dL 35-85 39, 40 Chol/ HDL Ratio 3.4 ratio Low 3.7-5.6 39 VLDL 20 mg/dL 2-29 39 LDL (Calc) 115 mg/dL High 20-99 39, 41 Alt 14 U/L 3-42 39 Ast 21 U/L 8-42 39 Laboratory test finding 05/16/2015 Magnesium 2.1 mg/dL 1.5-2.7 39 CBC With Auto Diff 05/16/2015 WBC 4.1 K/uL 4.1-11.0 39 RBC 4.23 M/uL 4.00-5.40 39 Hemoglobin 12.8 gm/dL 12.0-16.0 39 Hematocrit 39.8 % 36.0-47.0 39 MCV 94.0 fL 80.0-97.0 39 MCH 30.4 pg 27.0-32.0 39 MCHC 32.3 g/dL 32.0-36.0 39 RDW 13.5 % 11.5-14.5 39 PLT Count 211 K/ul 140-400 39 Neutrophil 64.3 % 35.0-75.0 39 Lymphocyte 19.3 % 16.0-52.0 39 Monocyte 9.0 % 2.0-10.0 39 Eosinophil 5.3 % High 0.0-5.0 39 Basophil 2.1 % 0.0-4.0 39 Abs Neutrophils 2.6 K/uL 2.1-8.0 39 Abs Lymphocytes 0.8 K/uL 0.8-5.5 39 Abmon 0.4 K/uL 0.1-1.0 39 Abs Eosinophils 0.2 K/uL 0.0-0.5 39 Abs Basophils 0.1 K/uL 0.0-0.3 39 Laboratory test finding 05/16/2015 Esr 13 mm/hr 0-20 39 Vit D,25 Hydroxy 56 ng/mL 31-100 39 Vitamin B12 708 pg/mL 180-914 39 Laboratory test finding 11/21/2014 Urine Culture Microbiology res <SEE 42 NOTE> Lipid Treatment 11/14/2014 Cholesterol 189 mg/dL 50-199 43 Triglycerides 92 mg/dL 30-200 43 HDL 57 mg/dL 35-85 43, 44 Chol/ HDL Ratio 3.3 ratio Low 3.7-5.6 43 VLDL 18 mg/dL 2-29 43 LDL (Calc) 114 mg/dL High 20-99 43, 45 Alt 10 U/L 3-42 43 Ast 17 U/L 8-42 43 Basic (BMP) 11/14/2014 Sodium 139 mmol/L 134-142 43 Potassium 4.4 mmol/L 3.5-5.2 43 Chloride 105 mmol/L 97-109 43 Carbon Dioxide 28 mmol/L 24-34 43 Glucose 92 mg/dL 70-105 43 BUN 14 mg/dL 6-26 43 Creatinine 0.8 mg/dL 0.5-1.4 43 Calcium 9.1 mg/dL 8.5-10.2 43 Anion Gap 10 mmol/L 6-14 43 Non Juanis Egfr >60 >60 43, 46 Juanis Egfr >60 >60 43, 47 Laboratory test finding 11/14/2014 Esr 16 mm/hr 0-20 43 Magnesium 1.9 mg/dL 1.5-2.7 43 CBC With Auto Diff 11/14/2014 WBC 8.4 K/uL 4.1-11.0 43 RBC 4.08 M/uL 4.00-5.40 43 Hemoglobin 12.3 gm/dL 12.0-16.0 43 Hematocrit 37.3 % 36.0-47.0 43 MCV 91.5 fL 80.0-97.0 43 MCH 30.3 pg 27.0-32.0 43 MCHC 33.1 g/dL 32.0-36.0 43 RDW 14.6 % High 11.5-14.5 43 PLT Count 238 K/ul 140-400 43 Neutrophil 82.3 % High 35.0-75.0 43 Lymphocyte 8.6 % Low 16.0-52.0 43 Monocyte 5.9 % 2.0-10.0 43 Eosinophil 2.6 % 0.0-5.0 43 Basophil 0.6 % 0.0-4.0 43 Abs Neutrophils 6.9 K/uL 2.1-8.0 43 Abs Lymphocytes 0.7 K/uL Low 0.8-5.5 43 Abmon 0.5 K/uL 0.1-1.0 43 Abs Eosinophils 0.2 K/uL 0.0-0.5 43 Abs Basophils 0.1 K/uL 0.0-0.3 43 Lipid Panel 05/16/2014 Chol/HDL Ratio 3.2 ratio Cholesterol 189.0 mg/dL 50.0-199.0 HDL 60.0 mg/dL 29.0-86.0 LDL, Calculated 114.6 mg/dL 20.0-129.0 Triglycerides 72.0 mg/dL 30.0-249.0 vLDL 14.4 ng/dL Laboratory test finding 05/16/2014 % Baso. 1.6 % 0.0-2.0 % Eos. 8.4 % High 0.0-4.0 % Lymph 15 % Low 20-44 % [place] 7.7 % 2.0-10.0 % [place] 67 % 50-70 Absolute Baso. 0.1 K/ul 0.0-0.3 Absolute Eos. 0.5 K/ul 0.0-0.5 Absolute Lymph. 0.9 K/ul 0.8-4.[address] [place]. 0.4 K/ul 0.1-1.0 Absolute [place]. 3.85 K/ul 2.05-7.63 Alt 15.0 U/L 9.0-52.0 Ast 22.0 U/L 14.0-36.0 Esr Sedrate 63.0 sec High 0.0-25.0 HCT 37.0 % 37.0-51.0 HGB 12.4 Gm/dl 12.0-16.0 MCH 30.7 pg 26.0-32.0 MCHC 33.5 g/dL 31.0-36.0 MCV 91.7 Fl 80.0-97.0 MPV 7.7 fL 6.0-10.0 Magnesium 2.0 1.7-2.3 PLT 295 K/ul 140-440 RBC 4.0 M/ul Low 4.2-6.3 RDW 12.0 % 11.5-14.5 Vitamin D 44.5 ng/mL 30.0-96.0 WBC 5.8 K/ul 4.1-10.9 Lipid Panel 11/23/2013 Chol/HDL Ratio 3.3 ratio Cholesterol 209.0 mg/dL High 50.0-199.0 HDL 64.0 mg/dL 29.0-86.0 LDL, Calculated 129.2 mg/dL High 20.0-129.0 Triglycerides 79.0 mg/dL 30.0-249.0 vLDL 15.8 ng/dL Laboratory test finding 11/23/2013 % Baso. 2.0 % 0.0-2.0 % Eos. 3.9 % 0.0-4.0 % Lymph 16 % Low 20-44 % [place] 8.6 % 2.0-10.0 % [place] 70 % 50-70 Absolute Baso. 0.1 K/ul 0.0-0.3 Absolute Eos. 0.2 K/ul 0.0-0.5 Absolute Lymph. 0.9 K/ul 0.8-4.[address] [place]. 0.5 K/ul 0.1-1.0 Absolute [place]. 3.81 K/ul 2.05-7.63 Alt 16.0 U/L 9.0-52.0 Ast 24.0 U/L 14.0-36.0 BUN 17.0 mg/dL 7.0-18.0 BUN/Creat Ratio 21.3 ratio High 12.0-20.0 Calcium 9.6 mg/dL 8.7-10.5 Chloride 107.0 mmol/L 98.0-107.0 Co2 24.0 mmol/L 22.0-30.0 Creatinine-Serum 0.8 mg/dL 0.7-1.2 Esr Sedrate 12.0 sec 0.0-25.0 Glucose 92.0 mg/dL 75.0-110.0 HCT 37.7 % 37.0-51.0 HGB 13.1 Gm/dl 12.0-16.0 MCH 32.3 pg High 26.0-32.0 MCHC 34.7 g/dL 31.0-36.0 MCV 93.3 Fl 80.0-97.0 MPV 8.6 fL 6.0-10.0 Magnesium 2.3 1.7-2.3 PLT 273 K/ul 140-440 Potasium 4.6 mmol/L 3.6-5.0 RBC 4.0 M/ul Low 4.2-6.3 RDW 12.2 % 11.5-14.5 Sodium 141.0 mmil/L 137.0-145.0 WBC 5.5 K/ul 4.1-10.9 eGFR 74.3 Laboratory test finding 08/25/2013 Esophageal Biopsy See Note 48 Lipid Panel 05/25/2013 Chol/HDL Ratio 3.2 ratio Cholesterol 231.0 mg/dL High 50.0-199.0 HDL 72.0 mg/dL 29.0-86.0 LDL, Calculated 145.8 mg/dL High 20.0-129.0 Triglycerides 66.0 mg/dL 30.0-249.0 vLDL 13.2 ng/dL Laboratory test finding 05/25/2013 % Baso. 2.8 % High 0.0-2.0 % Eos. 6.0 % High 0.0-4.0 % Lymph 23 % 20-44 % [place] 10.0 % 2.0-10.0 % [place] 59 % 50-70 A/G Ratio 1.8 ratio 1.6-2.2 Absolute Baso. 0.1 K/ul 0.0-0.3 Absolute Eos. 0.2 K/ul 0.0-0.5 Absolute Lymph. 0.9 K/ul 0.8-4.[address] [place]. 0.4 K/ul 0.1-1.0 Absolute [place]. 2.24 K/ul 2.05-7.63 Albumin 3.9 g/dL 3.5-5.0 Alk. Phos. 60.0 U/L 30.0-126.0 Alt 17.0 U/L 9.0-52.0 Anion Gap 7.0 mmol/L Low 10.0-20.0 Ast 24.0 U/L 14.0-36.0 BUN 16.0 mg/dL 7.0-18.0 BUN/Creat Ratio 17.8 ratio 12.0-20.0 Calcium 9.6 mg/dL 8.7-10.5 Chloride 106.0 mmol/L 98.0-107.0 Co2 26.0 mmol/L 22.0-30.0 Creatinine-Serum 0.9 mg/dL 0.7-1.2 Esr Sedrate 10.0 sec 0.0-25.0 Globulin 2.2 g/dL Low 2.7-4.3 Glucose 92.0 mg/dL 75.0-110.0 HCT 41.1 % 37.0-51.0 HGB 13.9 Gm/dl 12.0-16.0 MCH 32.3 pg High 26.0-32.0 MCHC 33.9 g/dL 31.0-36.0 MCV 95.1 Fl 80.0-97.0 MPV 9.0 fL 6.0-10.0 Magnesium 1.6 mg/dL Low 1.7-2.3 49 PLT 219 K/ul 140-440 Potasium 4.1 mmol/L 3.6-5.0 RBC 4.3 M/ul 4.2-6.3 RDW 12.2 % 11.5-14.5 Sodium 139.0 mmil/L 137.0-145.0 Total Bilirubin 0.3 mg/dL 0.2-1.3 Total Protein 6.1 g/dL Low 6.3-8.2 WBC 3.8 K/ul Low 4.1-10.9 eGFR 64.8 mi/minper1.73 50 Laboratory test finding 11/22/2012 % Baso. 1.8 % 0.0-2.0 % Eos. 6.1 % High 0.0-4.0 % Lymph 22 % 20-44 % [place] 12.6 % High 2.0-10.0 % [place] 58 % 50-70 Absolute Baso. 0.1 K/ul 0.0-0.3 Absolute Eos. 0.2 K/ul 0.0-0.5 Absolute Lymph. 0.9 K/ul 0.8-4.[address] [place]. 0.5 K/ul 0.1-1.0 Absolute [place]. 2.30 K/ul 2.05-7.63 Alt 16.0 U/L 9.0-52.0 Ast 25.0 U/L 14.0-36.0 Esr Sedrate 16.0 sec 0.0-25.0 HCT 39.2 % 37.0-51.0 HGB 12.8 Gm/dl 12.0-16.0 MCH 31.8 pg 26.0-32.0 MCHC 32.7 g/dL 31.0-36.0 MCV 97.1 Fl High 80.0-97.0 MPV 8.5 fL 6.0-10.0 PLT 243 K/ul 140-440 RBC 4.0 M/ul Low 4.2-6.3 RDW 11.7 % 11.5-14.5 Vitamin D 42.1 ng/mL 30.0-100.0 WBC 4.0 K/ul Low 4.1-10.9 Antinuclear Abs Ifa 11/22/2012 Antinuclear Antibodies, Ifa See patterns . 51 Centromere Pattern 1:640 High . Note See Note 52 Lipid Panel 11/22/2012 Chol/HDL Ratio 3.1 ratio Cholesterol 190.0 mg/dL 50.0-199.0 HDL 61.0 mg/dL 29.0-86.0 LDL, Calculated 116.6 mg/dL 20.0-129.0 Triglycerides 62.0 mg/dL 30.0-249.0 vLDL 12.4 ng/dL 1 11/30 preOV 2 Updated reference range on new analyzer 3 Updated reference range on new analyzer 4 Concerning GFR Guidelines for Americans: Normal function or mild renal disease, if clinically at risk: >/=60 mL/min Moderately decreased: 30-59 Severely decreased: 15-29 Renal failure: <15 5 Concerning GFR Guidelines: Normal function or mild renal disease, if clinically at risk: >/=60 mL/min Moderately decreased: 30-59 Severely decreased: 15-29 Renal failure: <15 Glomerular Filtration Rate (GFR) is estimated based on the MDRD equation, which assumes a steady state for creatinine as recommended by the National Kidney Disease Education Program in conjunction with the National Institutes of Health and the National Kidney Foundation. Clinical conditions in which it may be necessary to measure GFR by using clearance methods include extremes of age and body size, severe malnutrition or obesity, diseases of skeletal muscle, paraplegia or quadriplegia, vegetarian diet, rapidly changing kidney function, and calculation of the dose of potentially toxic drugs that are excreted by the kidneys. 6 Updated Reference Range 7 Per NCEP ATP III Guidelines: Results lower than 40 mg/dL are suggestive of increased risk for coronary artery disease. Results > or=to 60 mg/dL are considered a negative risk factor. 8 Per NCEP ATP III Guidelines: Normal Population <130 Patients with medical conditions: CHD/DM Optimal: <100 Borderline high: 130-159 High: 160-189 Very high: >189 9 cc: Dr Luna (FAXED 11/09 - A.D.) 10 Updated reference range on new analyzer 11 Updated reference range on new analyzer 12 Concerning GFR Guidelines: Normal function or mild renal disease, if clinically at risk: >/=60 mL/min Moderately decreased: 30-59 Severely decreased: 15-29 Renal failure: <15 Glomerular Filtration Rate (GFR) is estimated based on the MDRD equation, which assumes a steady state for creatinine as recommended by the National Kidney Disease Education Program in conjunction with the National Institutes of Health and the National Kidney Foundation. Clinical conditions in which it may be necessary to measure GFR by using clearance methods include extremes of age and body size, severe malnutrition or obesity, diseases of skeletal muscle, paraplegia or quadriplegia, vegetarian diet, rapidly changing kidney function, and calculation of the dose of potentially toxic drugs that are excreted by the kidneys. 13 Concerning GFR Guidelines for Americans: Normal function or mild renal disease, if clinically at risk: >/=60 mL/min Moderately decreased: 30-59 Severely decreased: 15-29 Renal failure: <15 14 Updated Reference Range 15 05/31 preOV 16 Per NCEP ATP III Guidelines: Results lower than 40 mg/dL are suggestive of increased risk for coronary artery disease. Results > or=to 60 mg/dL are considered a negative risk factor. 17 Per NCEP ATP III Guidelines: Normal Population <130 Patients with medical conditions: CHD/DM Optimal: <100 Borderline high: 130-159 High: 160-189 Very high: >189 18 Microbiology results SOURCE Clean Catch Midstream COLONY [...] TOBRAMYCIN <=4 S TRIMETHOPRIM/SULFAMETHOXAZ <=2/38 S S=Sensitive;I=Indeterminate;R=Resistant 19 11/29 preOV 20 Per NCEP ATP III Guidelines: Results lower than 40 mg/dL are suggestive of increased risk for coronary artery disease. Results > or=to 60 mg/dL are considered a negative risk factor. 21 Per NCEP ATP III Guidelines: Normal Population <130 Patients with medical conditions: CHD/DM Optimal: <100 Borderline high: 130-159 High: 160-189 Very high: >189 22 Updated reference range on new analyzer 23 Updated reference range on new analyzer 24 Concerning GFR Guidelines: Normal function or mild renal disease, if clinically at risk: >/=60 mL/min Moderately decreased: 30-59 Severely decreased: 15-29 Renal failure: <15 Glomerular Filtration Rate (GFR) is estimated based on the MDRD equation, which assumes a steady state for creatinine as recommended by the National Kidney Disease Education Program in conjunction with the National Institutes of Health and the National Kidney Foundation. Clinical conditions in which it may be necessary to measure GFR by using clearance methods include extremes of age and body size, severe malnutrition or obesity, diseases of skeletal muscle, paraplegia or quadriplegia, vegetarian diet, rapidly changing kidney function, and calculation of the dose of potentially toxic drugs that are excreted by the kidneys. 25 Concerning GFR Guidelines for Americans: Normal function or mild renal disease, if clinically at risk: >/=60 mL/min Moderately decreased: 30-59 Severely decreased: 15-29 Renal failure: <15 26 Updated reference range on new analyzer 27 05/30 preOV 28 Per NCEP ATP III Guidelines: Results lower than 40 mg/dL are suggestive of increased risk for coronary artery disease. Results > or=to 60 mg/dL are considered a negative risk factor. 29 Per NCEP ATP III Guidelines: Normal Population <130 Patients with medical conditions: CHD/DM Optimal: <100 Borderline high: 130-159 High: 160-189 Very high: >189 30 Concerning GFR Guidelines: Normal function or mild renal disease, if clinically at risk: >/=60 mL/min Moderately decreased: 30-59 Severely decreased: 15-29 Renal failure: <15 Glomerular Filtration Rate (GFR) is estimated based on the MDRD equation, which assumes a steady state for creatinine as recommended by the National Kidney Disease Education Program in conjunction with the National Institutes of Health and the National Kidney Foundation. Clinical conditions in which it may be necessary to measure GFR by using clearance methods include extremes of age and body size, severe malnutrition or obesity, diseases of skeletal muscle, paraplegia or quadriplegia, vegetarian diet, rapidly changing kidney function, and calculation of the dose of potentially toxic drugs that are excreted by the kidneys. 31 Concerning GFR Guidelines for Americans: Normal function or mild renal disease, if clinically at risk: >/=60 mL/min Moderately decreased: 30-59 Severely decreased: 15-29 Renal failure: <15 32 SPECIMEN DESCRIPTION MIDSTREAM URINE,CLEAN CATCH CULTURE RESULTS 75,000 CFU/ML ESCHERICHIA COLI REPORT STATUS FINAL 02/25/2016 ORGANISM ESCHERICHIA COLI METHOD SIMRAN AMIKACIN <=2 SUSCEPTIBLE AMOXICILLIN/CLAVULANIC AC <=2/1 SUSCEPTIBLE AMPICILLIN <=2 SUSCEPTIBLE ISOLATES SUSCEPTIBLE TO AMPICILLIN ARE ALSO SUSCEPTIBLE TO AMOXICILLIN. CEFAZOLIN <=4 SUSCEPTIBLE FOR UNCOMPLICATED UTI'S,CEFAZOLIN SIMRAN RESULTS LESS THAN OR EQUAL TO 16 MCG/ML PREDICT SUSCEPTIBILITY OF THE FOLLOWING ORAL CEPHALOSPORINS:CEFACLOR,CEFDINIR, CEFPODOXIME,CEFPROZIL,CEFUROXIME AND CEPHALEXIN. CEFEPIME <=1 SUSCEPTIBLE CEFOXITIN <=4 SUSCEPTIBLE CEFTAZIDIME <=1 SUSCEPTIBLE CEFTRIAXONE <=1 SUSCEPTIBLE CIPROFLOXACIN <=0.25 SUSCEPTIBLE GENTAMICIN <=1 SUSCEPTIBLE LEVOFLOXACIN <=0.12 SUSCEPTIBLE NITROFURANTOIN <=16 SUSCEPTIBLE PIPERACILLIN/TAZOBACTAM <=4 SUSCEPTIBLE TETRACYCLINE <=1 SUSCEPTIBLE TOBRAMYCIN <=1 SUSCEPTIBLE TRIMETH/SULFA <=1/19 SUSCEPTIBLE ERTAPENEM <=0.5 SUSCEPTIBL 33 early 01/28 34 11/28 preOV 35 Per NCEP ATP III Guidelines: Results lower than 40 mg/dL are suggestive of increased risk for coronary artery disease. Results > or=to 60 mg/dL are considered a negative risk factor. 36 Per NCEP ATP III Guidelines: Normal Population <130 Patients with medical conditions: CHD/DM Optimal: <100 Borderline high: 130-159 High: 160-189 Very high: >189 37 Concerning GFR Guidelines: Normal function or mild renal disease, if clinically at risk: >/=60 mL/min Moderately decreased: 30-59 Severely decreased: 15-29 Renal failure: <15 Glomerular Filtration Rate (GFR) is estimated based on the MDRD equation, which assumes a steady state for creatinine as recommended by the National Kidney Disease Education Program in conjunction with the National Institutes of Health and the National Kidney Foundation. Clinical conditions in which it may be necessary to measure GFR by using clearance methods include extremes of age and body size, severe malnutrition or obesity, diseases of skeletal muscle, paraplegia or quadriplegia, vegetarian diet, rapidly changing kidney function, and calculation of the dose of potentially toxic drugs that are excreted by the kidneys. 38 Concerning GFR Guidelines for Americans: Normal function or mild renal disease, if clinically at risk: >/=60 mL/min Moderately decreased: 30-59 Severely decreased: 15-29 Renal failure: <15 39 12/ preOV 40 Per NCEP ATP III Guidelines: Results lower than 40 mg/dL are suggestive of increased risk for coronary artery disease. Results > or=to 60 mg/dL are considered a negative risk factor. 41 Per NCEP ATP III Guidelines: Normal Population <130 Patients with medical conditions: CHD/DM Optimal: <100 Borderline high: 130-159 High: 160-189 Very high: >189 42 Microbiology results SOURCE URINE COLONY COUNT >100,000 CFU/ML PRELIMINARY RESULT Gram Negative Romain. ID & Sensitivity to Follow. FINAL RESULT Escherichia coli (Isolate 1) Sensitivity Analysis Isolate 1 --------- AMIKACIN <=16 S AMPICILLIN <=8 S AMPICILLIN/SULBACTAM <=8/4 S CEFAZOLIN <=2 S CEFEPIME <=8 S CEFTAZIDIME <=1 S CEFTRIAXONE <=1 S CIPROFLOXACIN <=1 S ERTAPENEM <=0.5 S GENTAMYCIN <=2 S IMIPENEM <=1 S LEVOFLOXACIN <=2 S NITROFURANTOIN <=32 S PIPERACILLIN/TAZOBACTAM <=16 S TETRACYCLINE <=4 S TOBRAMYCIN <=4 S TRIMETHOPRIM/SULFAMETHOXAZ <=2/38 S S=Sensitive;I=Indeterminate;R=Resistant 43 preOV 6/15 44 Per NCEP ATP III Guidelines: Results lower than 40 mg/dL are suggestive of increased risk for coronary artery disease. Results > or=to 60 mg/dL are considered a negative risk factor. 45 Per NCEP ATP III Guidelines: Normal Population <130 Patients with medical conditions: CHD/DM Optimal: <100 Borderline high: 130-159 High: 160-189 Very high: >189 46 Concerning GFR Guidelines: Normal function or mild renal disease, if clinically at risk: >/=60 mL/min Moderately decreased: 30-59 Severely decreased: 15-29 Renal failure: <15 Glomerular Filtration Rate (GFR) is estimated based on the MDRD equation, which assumes a steady state for creatinine as recommended by the National Kidney Disease Education Program in conjunction with the National Institutes of Health and the National Kidney Foundation. Clinical conditions in which it may be necessary to measure GFR by using clearance methods include extremes of age and body size, severe malnutrition or obesity, diseases of skeletal muscle, paraplegia or quadriplegia, vegetarian diet, rapidly changing kidney function, and calculation of the dose of potentially toxic drugs that are excreted by the kidneys. 47 Concerning GFR Guidelines for Americans: Normal function or mild renal disease, if clinically at risk: >/=60 mL/min Moderately decreased: 30-59 Severely decreased: 15-29 Renal failure: <15 48 OPERATION/PROCEDURE EGD DIAGNOSIS: PART 1: "STOMACH, BIOPSIES": REACTIVE GASTROPATHY. NO HELICOBACTER SEEN WITH SPECIAL STAIN. PART 2: "ESOPHAGUS, BIOPSIES": FRAGMENTS OF GASTRIC AND ESOPHAGEAL MUCOSA OF JUNCTIONAL ORIGIN DEMONSTRATING REACTIVE CHANGES IN A BACKGROUND INFLAMMATION CONSISTENT WITH ESOPHAGITIS AND GASTRITIS, NONSPECIFIC, MILD TO MODERATE. /maria a 1138 GROSS Part 1; "STOMACH BIOPSIES". The specimen is received in an appropriately labeled container. This contains two rounded polypoid lópez colored pieces of soft tissue measuring up to 0.5 cm. and 0.6 cm.; filtered and submitted in toto within a single cassette. Part 2; "ESOPHAGEAL BIOPSIES". The specimen is received in an appropriately labeled container. This contains four rounded lópez colored pieces of soft tissue measuring up to 0.4-0.5 cm.; filtered and submitted in toto within a single cassette. /maria a MICROSCOPIC Part 1: Sections show glandular elongation, tortuosity, and hypercellularity of gastric pits, foveolar hyperplasia, and villiform transformation of the mucosa. The glands appear more angular than usual. Foveolar cells show mild mucin depletion and vacuolization. There is capillary congestion, vasodilatation and edema. Smooth muscle fibers extend high into the lamina propria. There are interstitial chronic inflammatory cells. There are no Helicobacter-type bacteria identified with Warthin-Starry staining. The controls are adequate. Part 2: Specimen is composed of a mixture of fragments from the esophagus, and stomach. MICROSCOPIC (Continued) In one piece, there is the combination of squamous and columnar superficial epithelium consistent with junctional mucosa. The squamous component is acanthotic and demonstrates mild spongiosis with exocytosis of inflammatory cells. The glandular component demonstrates mild reactive distortion, and branching associated with varying degrees of chronic inflammation. Goblet cell metaplasia characteristic of Martines type metaplasia is not observed. PRE OPERATIVE DIAGNOSIS Dysphagia, vomiting , GERD REVIEW CODE CODE: I ----- Signed Electronically signed TOM LIRA MD 08/29/13 1329 ----- 49 [facility] 05/27 preOV 50 For -[place] patients multiply result by 1.180 51 Negative <1:80 Borderline 1:80 Positive >1:80 52 A positive SAMUEL result may occur in healthy individuals or be associated with a variety of diseases. See interpre- tation below: Pattern Antigen Detected Suggested Disease Association Homogeneous DNA(ds,ss,), High titers - SLE ( Smooth) Histone Speckled Sm, [employer], SCL-70, SLE,MCTD,Scleroderma,Sjogrens SS-A/SS-B ---- Nucleolar SCL-70, PM-1/SCL High titers Scleroderma Poly- myositis/Scleroderma Overlap Centromere Centromere PSS w/Crest syndrome variable Performed at: RN - [facility] [address] [id number] Veterinary Medicine Doctor: Vandana Drummond MD, Phone: [phone] Procedures Date CPT Code Description Status Comment 03/27/2018 78255 Measure Blood Oxygen Level Completed Single Determination 11/03/2017 38523 Electrocardiogram Complete Completed 07/07/2017 41135 ECHO Transthoracis 2D W Completed Spectral Doppler 07/07/2017 02956 ECHO Transthoracis 2D W Completed Spectral Doppler 07/07/2017 Bone Mineral Density Test Completed 06/22/2017 71044 Measure Blood Oxygen Level Completed Single Determination 09/02/2016 Colonoscopy Completed 08/29: DR KENNEY - IH, TICS, SIGMOID ADHESION, PATCHY SIGMOID COLITIS, BX NEG - Colonoscopy, Ugi Endocopy 01/07/2016 Bone Mineral Density Test Completed 01/07/2016 Mammogram Completed 06/29: Normal - Mammogram 12/28: NORMAL Mammography 01/07/2016 23974 Bone Density Study (Dexa) Axial Completed Skeleton (Hips,Pelvis,Spine) 05/23/2015 64906 Electrocardiogram Complete Completed 11/21/2014 98318 X-Ray Chest Two Views Frontal & Completed Lateral 11/21/2014 47805 X-Ray Chest Two Views Frontal & Completed Lateral 10/09/2014 51334 Measure Blood Oxygen Level Completed Single Determination 10/09/2014 83072 Measure Blood Oxygen Level Completed Single Determination 10/02/2014 66594 X-Ray Chest Two Views Frontal & Completed Lateral 10/02/2014 16769 X-Ray Chest Two Views Frontal & Completed Lateral 06/21/2014 Mammogram Completed 05/23/2014 83105 Electrocardiogram Complete Completed 05/05/2013 44287 Mammography Unilateral Completed 11/12/2011 18187 Bone Density Study, Single Completed Photon Absorptiometry 06/12/2010 46508 Spirometry /PFT W/O Completed Bronchodialator Encounters Type Date Location Provider CPT E/M Dx Office Visit 12/09/2017 2:30p [facility] [place] [address] E03.9 E78.00 I42.9 M32.9 E83.40 I83.10 G45.0 K21.9 M93.90 Office Visit 11/03/2017 1:30p [place] [address] I83.10 Z01.810 I42.9 E78.00 K21.9 E83.40 I73.00 E03.9 Office Visit 07/09/2017 11:30a [facility] [place] [address] I42.9 M93.90 Office Visit 06/22/2017 4:00p [place] [address] J06.9 J01.00 Office Visit 06/10/2017 1:00p [facility] [place] [place] [address] E03.9 E83.40 K21.9 E78.00 M93.90 M32.9 I83.10 M79.7 I73.00 Z00.00 R53.83 J44.9 Office Visit 12/02/2016 1:00p [facility] [place] [address] E03.9 E78.00 K21.9 M32.9 M93.90 I83.10 E83.40 M79.7 R06.00 Office Visit 11/24/2016 8:15a [facility] [place] [address] R30.0 Office Visit 06/02/2016 1:00p [facility] [place] [address] E03.9 E78.00 E83.40 M32.9 I73.00 R53.83 K21.9 I83.10 M85.89 Z00.01 R21 R63.4 Office Visit 02/23/2016 9:45a [facility] [place] [address] N30.00 M32.9 K13.0 Office Visit 11/23/2015 1:00p [place] [address] E03.9 E78.0 E83.40 M32.9 R53.83 I73.00 K21.9 I83.10 Z79.899 Z12.31 M81.0 Office Visit 06/06/2015 10:30a [facility] [place] [place] [address] J06.9 J06.9 J04.10 J04.10 Office Visit 05/23/2015 2:30p [facility] [place] [place] [address] E78.0 I73.00 K21.9 I83.10 E83.40 M32.9 R53.81 R53.83 Office Visit 02/21/2015 3:30p [facility] [place] [address] 788.0 Office Visit 11/21/2014 1:00p [facility] [place] [address] 595.0 272.0 530.81 443.0 454.1 275.2 710.0 733.90 V03.82 922.1 729.1 Office Visit 11/02/2014 2:30p [facility] [place] [address] 911.4 Office Visit 10/09/2014 11:30a [facility] [place] [address] 922.1 922.1 Office Visit 10/02/2014 11:15a [facility] [place] [address] 922.1 922.1 Plan of Care Future Appointment(s):06/16/2018 7:50 am - Schedule, Laboratory at [facility]2018 2:30 pm - Arcadio King MD at [facility]03/27/2018 - Abena Cha [id number] Multiple fractures of ribs, RIGHT side, init for clos fxNew Xrays: Chest Xray, 2 ViewsRibs, Unilateral - 2 Views, RTComments:by clinical dx rib fracture, right side, monserratley multiple levelsI don't have an xray availabiliy in the office today, she is not short of breath and appears stable so we can do one on Thursday 03/29 to followup on this to look for complications recommend out of play, tylenol 1000mg up to 3 times dailyusemoist heat or ice as needed, 15min 4 times daily, which ever feels better. she is taking alot of excedrin, recommend she cut back on that due to bleeding risks call if pain is not controlled due to fall, call if you get new symptoms as something else could be developing if develops worsening shortnessof breath, fadi if escalating, then consider pneumothorax complication and pt should call/er if severe and rapid acceleration of sxsadvised will take 6 weeks to recoverFollow up:chest/rib on Thursday is okM25.552 Pain in LEFT hipComments:pain after a fallno signs of fracture, normal weight bearing and range of motionok to observe, seek care if [id number] Fall same lev from slip/trip w/o strike against object, initComments:belly is soft, if you develop abdominal pain, especially if worsening,pleae call you could have struck your head, seek care for development of any dizziness, headache, nausea, vomiting any concerning symptoms
[2018-03-28 11:23] VITALS: BP 143/66
--- NOTE | 2018-03-28 12:02 | UC ---
Truncal Trauma HPI - HPI Summary HPI Summary: 78 F with rib pain . states fell 03/25 c/o right sided rib pain. Had outpatient xrays here this morning. Now has left sided back pain as well. Did not fall on the left side. She fell on her right side and most of the pain is on the right side . She has taken Tylenol without much relief. She did see her primary care doctor yesterday who diagnosed likely rib fractures. Patient came in today for those images. She denies any further falling. She fell outside in her yard while trying to pick at wounds and landed on her left side. She denies any shortness of breath. Patient denies any urinary incontinence or red flags like a foot drop. No weakness or numbness or tingling into the legs or to the feet. There is some pain with movement and with deep inspiration. [ End ] - History Of Current Complaint Chief Complaint: UCGeneralIllness Stated Complaint: RIB PAIN Time Seen by Provider: 03/28/18 11:58 Hx Obtained From: Patient ?: No Onset/Duration: Sudden Onset Pain Intensity: 5 Mechanism Of Injury: Blunt Trauma, Fall From A Standing Position Aggravating Factor(s): Nothing Alleviating factor(s): Nothing - Allergies/Home Medications Allergies/Adverse Reactions: Allergies Allergy/AdvReac Type Severity Reaction Status Date / Time citalopram [From Celexa] Allergy Unknown Verified 03/28/18 11:28 Reaction Details codeine Allergy Unknown Verified 03/28/18 11:28 Reaction Details propoxyphene [From Darvon] Allergy Unknown Verified 03/28/18 11:28 Reaction Details Sulfa (Sulfonamide Allergy Unknown Verified 03/28/18 11:28 Antibiotics) Reaction Details tramadol [From Ultram] Allergy Unknown Verified 03/28/18 11:28 Reaction Details Home Medications: Home Medications Amitriptyline TAB* [Elavil TAB*] 50 mg PO BEDTIME 03/28/18 [History Confirmed ] Aspirin 81 mg CHEW TAB* [Aspirin Low Dose TAB*] 81 mg PO DAILY 03/28/18 [ History Confirmed 03/28/18] Biotin 1 mg PO DAILY 03/28/18 [History Confirmed 03/28/18] Calcium Carbonate TAB* 1,250 mg PO BID 03/28/18 [History Confirmed 03/28/18] Carvedilol TAB* [Coreg TAB*] 3.125 mg PO BID 03/28/18 [History Confirmed ] Esomeprazole Magnesium [Nexium 24Hr] 20 mg PO BID 03/28/18 [History Confirmed ] Hydroxychloroquine TAB* [Plaquenil TAB*] 200 mg PO BID 03/28/18 [History Confirmed 03/28/18] Levothyroxine TAB* [Synthroid TAB*] 25 mcg PO DAILY 03/28/18 [History Confirmed 03/28/18] Magnesium Oxide TAB* [MagOx 400 TAB*] 400 mg PO DAILY 03/28/18 [History Confirmed 03/28/18] Meclizine TAB* [Antivert 12.5 TAB*] 12.5 mg PO TID PRN 03/28/18 [History Confirmed 03/28/18] PMH/Surg Hx/FS Hx/Imm Hx Previously Healthy: Yes Endocrine History: Dyslipidemia Cardiovascular History: Hypertension GI/ History: Gastroesophageal Reflux - Surgical History Surgical History: Yes Surgery Procedure, Year, and Place: vericose vein - Family History Known Family History: Positive: None - Social History Occupation: Retired Lives: With Family Alcohol Use: None Substance Use Type: None Smoking Status (MU): Never Smoked Tobacco Review of Systems Musculoskeletal: Arthralgia, Myalgia Is Patient Immunocompromised?: No All Other Systems Reviewed And Are Negative: Yes Physical Exam Triage Information Reviewed: Yes Appearance: Well-Appearing, Pain Distress - moderate Vital Signs: Initial Vital Signs Temp 98 F 03/28/18 11:16 Pulse 88 03/28/18 11:16 Resp 18 03/28/18 11:16 BP 143/66 03/28/18 11:16 Pulse Ox 98 03/28/18 11:16 Vital Signs Reviewed: Yes Eye Exam: Normal ENT Exam: Normal Respiratory Exam: Normal Cardiovascular Exam: Normal Abdominal Exam: Normal Musculoskeletal Exam: Normal Musculoskeletal: Positive: Strength Intact, ROM Intact, No Edema, Other: - Tenderness to palpation of the right lateral ribs around 7 and 8. No break in the skin. Good inspiration with lung auscultation. Left paralumbar spinal tenderness to palpation and mild hypertonicity. No pain in the hip or the can take bursa. No pain radiating into the groin. Gait mildly antalgic. Can walk without significant difficulty. Full range of motion of the lumbar spine. No foot drop. Strength 5 out of 5 lower extremities andsensation normal Neurological Exam: Normal Neurological: Positive: Alert Psychological Exam: Normal Skin Exam: Normal Skin: Negative: rashes, breakdown, significant lesion(s) Diagnostics - Laboratory Diagnostic Studies Completed/Ordered: IMPRESSION: Suggestion of a fracture of the anterior lateral aspect of the right seventh. rib without significant displacement. Truncal Trauma Course/Dx - Course Course Of Treatment: Advised to continue Tylenol as per her primary care doctor' s directions. X-ray reviewed with patient no acute concerns besides a right rib fracture seventh rib. No pneumothorax noted. We discussed other options for treatment and she desires to have anti-inflammatory at this time. She is requesting medication and states she has no issues with previous bleeding, kidney damage, gastric ulcer. She states she does take Aleve periodically at home and was not told by her doctor to avoid these medication. She does have allergies to numerous medications including most narcotics. We did give her a 30 mg dose of Toradol in the urgent care department to help with her pain. She was discharged home on her own strength ambulated with mild discomfort. She is aware of her symptoms persist or worsen to return for further evaluation. She will consider using Aleve later today when she gets home greater than 8-10 hours from the dose of Toradol. If symptoms persist [facility]. No red flags and discussed if develops any to go to emergency room. - Differential Dx/Diagnosis Differential Diagnosis/HQI/PQRI: Chest Wall Contusion, Chest Wall Abrasion, Rib Fracture Provider Diagnoses: Right 7th rib fracture Discharge - Sign-Out/Discharge Documenting (check all that apply): Patient Departure All imaging exams completed and their final reports reviewed: Yes - Discharge Plan Condition: Good Disposition: HOME Patient Education Materials: Rib Fracture (ED) Referrals: Arcadio King MD [Primary Care Provider] - 3 Days - Billing Disposition and Condition Condition: GOOD Disposition: Home
[2018-03-28] MEDS ORDERED: Ketorolac INJ* 30 MG/ML 1 ML VIAL IM ONE (12:11)
== END 2018-03-28 12:34 | disposition home or self-care (01) ==
LOC: UCCORT 11:05
DX: S22.31XA Fracture of one rib, right side, initial encounter for closed fracture (principal); W19.XXXA Unspecified fall, initial encounter; Y93.89 Activity, other specified; Y92.007 Garden or yard of unspecified non-institutional (private) residence as the place of occurrence of the external cause; Z88.5 Allergy status to narcotic agent; Z88.8 Allergy status to other drugs, medicaments and biological substances; Z88.1 Allergy status to other antibiotic agents; I10 Essential (primary) hypertension; E78.5 Hyperlipidemia, unspecified; K21.9 Gastro-esophageal reflux disease without esophagitis
CPT/HCPCS: 96372; 99201; G0463; J1885